=== PATIENT | female | born 1990 | race Asian ===

== ENCOUNTER 2020-03-14 12:34 | Emergency (ER) | payer OTHER ==
[~2020-03-14] VITALS: Ht 162.6 cm; Wt 56.7 kg
[2020-03-14 12:42] VITALS: BP 109/65; Ht 162.6 cm; Wt 56.7 kg
== END 2020-03-14 14:13 | disposition home or self-care (01) ==
LOC: ED 12:34
DX: S61.217A Laceration without foreign body of left little finger without damage to nail, initial encounter (principal); W26.0XXA Contact with knife, initial encounter; Y93.G3 Activity, cooking and baking; Y92.89 Other specified places as the place of occurrence of the external cause; Y99.8 Other external cause status
CPT/HCPCS: A4570